=== PATIENT | female | born 1985 | race Asian ===

== ENCOUNTER 2018-07-17 18:11 | Outpatient (CLI) | payer OTHER ==
[~2018-07-17] VITALS: Ht 160 cm; Wt 61.4 kg
[2018-07-17 18:41] VITALS: BP 113/55
== END 2018-07-17 19:35 | disposition home or self-care (01) ==
LOC: LDOP 18:11
PROVIDERS: ATTEND Obstetrics & Gynecology
DX: O26.893 Other specified pregnancy related conditions, third trimester (principal); R10.9 Unspecified abdominal pain; Z3A.33 33 weeks gestation of pregnancy
CPT/HCPCS: 59025; 99211; G0463

== ENCOUNTER 2018-08-03 12:23 | Outpatient (CLI) | payer OTHER ==
[~2018-08-03] VITALS: Ht 160 cm; Wt 61.8 kg
[2018-08-03] MEDS ORDERED: TERBUTALINE 1 MG/ML, 1ML ONE (12:42)
[2018-08-03] MEDS ORDERED: TERBUTALINE 1 MG/ML, 1ML IVPush PRN (13:00)
== END 2018-08-03 15:15 | disposition home or self-care (01) ==
LOC: LDOP 12:23
PROVIDERS: ATTEND Obstetrics & Gynecology
DX: O32.1XX0 Maternal care for breech presentation, not applicable or unspecified (principal); Z3A.36 36 weeks gestation of pregnancy
CPT/HCPCS: 59025; 59412; 76815; 96372; J3105

== ENCOUNTER 2018-08-26 18:01 | Emergency (ER) | payer OTHER ==
[~2018-08-26] VITALS: Ht 160 cm; Wt 56.8 kg
[~2018-08-26 18:01] MED LIST: IBUP-1222 PO; OXYC-302 PO
--- NOTE | 2018-08-26 18:32 | NUR ---
PT BROUGHT BACK TO ROOM FOR URINARY RETENTION, BLADDER SCANNER SHOWED >999ML, DR LEMUS NOTIFIED, ZAMORA CATHETER PLACED, ABOUT 1400ML OUT. UA SENT TO LAB
--- NOTE | 2018-08-26 18:33 | NUR ---
PT STATES SHE HAD A ON August, HAD A ZAMORA DURING THE PROCEDURE, WAS ABLE TO VOID BEFORE LEAVING THE HOSPITAL. HAS BEEN CONSTIPATED AND HAS NOT BEEN ABLE TO VOID X 2 DAYS.
[2018-08-26 18:42] LABS: MEAN CORPUSCULAR HEMOGLOBIN 30.1 pg (27.0-34.8); MEAN CORPUSCULAR VOLUME 88.4 fL (80-100); MEAN PLATELET VOLUME 7.8 fL (7.4-10.4); PLATELET COUNT 378 x10^3/uL (130-400); RED BLOOD COUNT 4.44 x10^6/uL (3.82-5.3); RED CELL DISTRIBUTION WIDTH 14.9 % (9.6-15.2)
[2018-08-26 18:45] LABS: MICROSCOPIC NOT IND
[2018-08-26 18:47] LABS: ALBUMIN 2.9 g/dL (3.4-5.0); ANION GAP 9 mmol/L (5-15); CALCIUM 8.7 mg/dL (8.5-10.1); CHLORIDE 113 mmol/L (98-107); CREATININE 0.73 mg/dL (0.55-1.02)
[2018-08-26 18:47] LABS: CULTURE INDICATED? NO
[2018-08-26 19:25] LABS: BASOPHILS # (AUTO) 0.09 x10^3/uL (0-0.1); BASOPHILS % (AUTO) 1 % (0-1); EOSINOPHILS # (AUTO) 0.31 x10^3/uL (0-0.4); EOSINOPHILS % (AUTO) 2 % (1-7); LYMPHOCYTES # (AUTO) 2.23 x10^3/uL (1-3.4); LYMPHOCYTES % (AUTO) 17 % (22-44); MD SCAN; MONOCYTES # (AUTO) 0.44 x10^3/uL (0.2-0.8); MONOCYTES % (AUTO) 3 % (2-9); NEUTROPHILS # (AUTO) 10.44 x10^3/uL (1.8-6.8); NEUTROPHILS % (AUTO) 77 % (42-75)
[2018-08-26] MEDS ORDERED: PINK LADY ENEMA 490 ML BOTTLE PR ONE (19:30)
--- NOTE | 2018-08-26 20:01 | NUR ---
REQUESTED MED FROM PHARMACY
--- NOTE | 2018-08-26 20:59 | NUR ---
[facility] ADMINISTERED. BEDSIDE COMMODE SET UP
--- NOTE | 2018-08-26 22:05 | NUR ---
PT WAS ABLE TO HAVE A BOWEL MOVEMENT. DURING THE BOWEL MOVEMENT, THE ZAMORA CAME OUT. THE BALLOON WAS DEFLATED, NO TRAUMA NOTED TO THE URETHRAL AREA. DR LEMUS NOTIFIED
--- NOTE | 2018-08-26 22:28 | NUR ---
DR LEMUS AT BEDSIDE UPDATING PT ON POC
[2018-08-26 22:33] VITALS: BP 116/71
--- NOTE | 2018-08-26 22:34 | NUR ---
PROVIDED PT WITH WATER. WILL WAIT TO SEE IF PT IS ABLE TO VOID BEFORE DISCHARGING
--- NOTE | 2018-08-26 23:37 | NUR ---
PT STILL UNABLE TO VOID ATT
--- NOTE | 2018-08-27 00:03 | NUR ---
PT WAS ABLE TO VOID. DR LEMUS NOTIFIED
== END 2018-08-27 00:22 | disposition home or self-care (01) ==
LOC: ED 19:55
DX: R33.0 Drug induced retention of urine (principal); K59.00 Constipation, unspecified
CPT/HCPCS: 36415; 51702; 74022; 80048; 81003; 82040; 85025; 99284

== ENCOUNTER 2019-06-16 17:15 | Emergency (ER) | payer OTHER ==
[~2019-06-16] VITALS: Ht 160 cm; Wt 56.7 kg
[2019-06-16] MEDS ORDERED: OXYcodone/APAP 5/325MG TABLET ONE (18:15)
[2019-06-16] MEDS ORDERED: OXYcodone/APAP 5/325MG TABLET PO ONE (18:30)
[2019-06-16] MEDS ORDERED: ONDANSETRON ODT 4 MG PO ONE (18:30)
[2019-06-16 19:37] VITALS: BP 136/78
== END 2019-06-16 19:39 | disposition home or self-care (01) ==
LOC: ED 19:30
DX: S42.021A Displaced fracture of shaft of right clavicle, initial encounter for closed fracture (principal); W22.8XXA Striking against or struck by other objects, initial encounter; Y93.89 Activity, other specified; Y92.828 Other wilderness area as the place of occurrence of the external cause; Y99.8 Other external cause status
CPT/HCPCS: 29105; 99283